=== PATIENT | male | born 1955 | race Caucasian/White ===

== ENCOUNTER 2017-08-21 08:15 | Emergency (ER) | payer OTHER ==
[~2017-08-21] VITALS: Ht 177.8 cm; Wt 45.4 kg
[2017-08-21 08:31] VITALS: BP_SYST 0
--- NOTE | 2017-08-21 08:43 | PHYS DOC ---
Adult General Chief Complaint Chief Complaint: CPR/FULL ARREST HPI HPI Patient is a 62 year old M who is unresponsive. EMS has initiated ACLS. Chest compressions and bag mask ventilation in progress on initial presentation. Per EMS his initial rhythm was PEA. Per family he simply stopped breathing. He does have a history of stage IV prostate cancer and has been progressively declining over the past several months. There are no reported recent illnesses. There were no reported medication changes. Review of Systems Review of Systems Unable to obtain due to current medical status Family History Family History No pertinent medical history was reported Current Medications Current Medications Current medications reviewed Allergies Allergies No known drug allergies Physical Exam Physical Exam Constitutional: Cachectic HENT: atraumatic, dry mucous membranes Eyes: Pupils fixed and dilated Cardiovascular: No pulse was palpated and no rhythm was able to be observed on the monitor other than asystole Lungs & Thorax: Limited assessment due to CPR in progress and bag mask ventilation however equal breath sounds heard bilaterally with bag mask ventilation Abdomen: soft, no masses, no pulsatile masses. [] Skin: Warm, very dry and flaky, no erythema, no rash. [] Back: Urostomy in place Extremities: Pitting edema below the ankles bilaterally Neurologic: No neurologic response was noted. No corneal reflex was noted Psychologic: Unable to assess due to current medical condition Current Patient Data Vital Signs Vital Signs Date Time Temp Pulse Resp B/P (MAP) Pulse Ox O2 Delivery O2 Flow Rate FiO2 08/21/17 08:31 0 95 15.0 EKG EKG Asystole Radiology/Procedures Radiology/Procedures [] Course & Med Decision Making Course & Med Decision Making Pertinent Labs and Imaging studies reviewed. (See chart for details) Prior to arrival 7 doses of epinephrine had been attempted as well as CPR for greater than 30 minutes without significant response. He was not intubated but was able to be successfully ventilated via bag mask with oxygen saturations greater than 90%. His lungs had good compliance. Breath sounds were heard bilaterally. He was given bicarbonate 1 amp and Lasix 40 mg IV as well as IV fluids. No response was noted. Additional epinephrine was also given. No response was noted. Time of was called at 0824. Dragon Disclaimer Dragon Disclaimer This electronic medical record was generated, in whole or in part, using a voice recognition dictation system. Departure Departure: Impression: Primary Impression: Cardiopulmonary arrest Disposition: 20 Condition: DARWIN VELAZQUEZ MD Aug 21, 2017 08:43
[2017-08-21] MEDS ORDERED: EPINEPHrine SYRINGE 1 MG/10 ML SYRINGE ONE (09:00)
[2017-08-21] MEDS ORDERED: SODIUM BICARB ADULT 8.4% 50 MEQ/50 ML DISP.SYRIN. ONE (09:00)
[2017-08-21] MEDS ORDERED: FUROSEMIDE 40 MG/4 ML VIAL ONE (12:35)
== END 2017-08-21 19:34 | disposition expired ==
LOC: ER 08:15
DX: I46.9 Cardiac arrest, cause unspecified (principal)
CPT/HCPCS: 92950; 99285; J0171